=== PATIENT | male | born 1930 | race Asian ===

== ENCOUNTER 2016-09-03 11:34 | Inpatient (IN) | payer OTHER, MEDICAID ==
[~2016-09-03] VITALS: Ht 165.1 cm; Wt 59.0 kg
[2016-09-03 11:50] VITALS: BP_SYST 158
[2016-09-03 13:47] LABS: BASOPHILS # (AUTO) 0.1 K/uL (0.0-0.2); BASOPHILS % (AUTO) 0.7 % (0.0-2.0); EOSINOPHILS % (AUTO) 0.1 % (0.0-4.0); HEMATOCRIT 41.5 % (36-54); HEMOGLOBIN 13.8 g/dL (14.0-18.0); LYMPHOCYTES # (AUTO) 0.7 K/uL (1.0-5.5); LYMPHOCYTES % (AUTO) 4.3 % (20.5-51.5); MEAN CORPUSCULAR HEMOGLOBIN 28 pg (27-31); MEAN CORPUSCULAR HGB CONC 33 % (32-36); MEAN CORPUSCULAR VOLUME 85 fL (79.0-98.0); MONOCYTES # (AUTO) 0.8 K/uL (0.0-1.0); MONOCYTES % (AUTO) 5.2 % (1.7-9.3); NEUTROPHILS # (AUTO) 13.8 K/uL (1.8-7.7); NEUTROPHILS % (AUTO) 89.7 % (40.0-70.0); PLATELET COUNT (AUTO) 227 K/uL (130-430); RED BLOOD CELL COUNT(AUTO) 4.86 MIL/uL (4.2-6.2); RED CELL DISTRIBUTION WIDTH 12.8 % (9.0-15.0); WHITE BLOOD COUNT (AUTO) 15.4 K/uL (4.8-10.8)
[2016-09-03 13:49] LABS: ANION GAP 13 (5-15); CALCIUM 11.1 mg/dL (8.4-11.0); CHLORIDE 102 mmol/L (98-107); CREATININE 1.24 mg/dL (0.55-1.30); GLUCOSE 117 mg/dL (70-99); POTASSIUM 3.3 mmol/L (3.5-5.1); SODIUM SERUM 138 mmol/L (136-145); UREA NITROGEN, BLOOD 22 mg/dL (8-21)
[2016-09-03 13:54] LABS: ALANINE AMINOTRANSFERASE 50 U/L (12-78); ALBUMIN 3.6 g/dL (3.4-4.8); ASPARTATE AMINOTRANSFERASE 42 U/L (10-37); TOTAL BILIRUBIN 1.1 mg/dL (0.0-1.0); TOTAL PROTEIN, SERUM 8.2 g/dL (6.4-8.3)
[2016-09-03 14:04] LABS: BILIRUBIN,URINE NEGATIVE (NEGATIVE); BLOOD, URINE 3+ (NEGATIVE); CLARITY/URINE CLOUDY (CLEAR); COLOR,URINE YELLOW (YELLOW); GLUCOSE,URINE NEGATIVE (NEGATIVE); KETONES,URINE NEGATIVE (NEGATIVE); LEUKOCYTE ESTERASE ,URINE 3+ (NEGATIVE); NITRITE, URINE NEGATIVE (NEGATIVE); PH,URINE 6.5 (5.0-8.0); PROTEIN URINE TRACE (NEGATIVE); UROBILINOGEN,URINE 0.2 (0.2-1.0)
[2016-09-03 14:08] LABS: BACTERIA,URINE MANY /HPF (None Seen); RBC,URINE 20-50 /HPF (0-3); WBC,URINE 20-50 /HPF (0-3)
[2016-09-03] MEDS ORDERED: cefTRIAXone 1 GM IVPB PREMIX 50 ML IV ONE (14:30)
[2016-09-03] MEDS ORDERED: AZEL6DRO5 EACH EYE (15:26)
[2016-09-03] MEDS ORDERED: TAMS-11 PO (15:26)
[2016-09-03] MEDS ORDERED: SIMV20TA6 PO (15:26)
[2016-09-03] MEDS ORDERED: CALC500T51 PO (15:26)
[2016-09-03] MEDS ORDERED: triamcinolone TP (15:26)
[2016-09-03] MEDS ORDERED: ASPI81TA2 PO (15:26)
[2016-09-03] MEDS ORDERED: CYAN100060 IJ (15:26)
[2016-09-03] MEDS ORDERED: FENO145T20 PO (15:26)
[2016-09-03] MEDS ORDERED: ALEN70TA27 PO (15:26)
[2016-09-03 16:06] VITALS: BP_SYST 168
[2016-09-03] MEDS: ACETAMINOPHEN 325 MG TABLET PO PRN ×2 (16:26→20:19)
[2016-09-03 16:44] VITALS: BP_SYST 168
[2016-09-03] MEDS ORDERED: POTASSIUM CHLORIDE 20 MEQ TAB.PRT.SR PO ONE (17:30)
[2016-09-03] MEDS ORDERED: ONDANSETRON HCL 4 MG/2 ML VIAL IVP PRN (18:00)
[2016-09-03] MEDS ORDERED: GENTAMICIN 100 mg/50 mL NS 50 ML IV ONE ×2 (18:00→21:01)
[2016-09-03 19:45] VITALS: BP_SYST 122
[2016-09-03] MEDS: TAMSULOSIN HCL 0.4 MG CAP PO SCH (20:19)
[2016-09-03] MEDS ORDERED: NON-FORMULARY MEDICATION (Azelastine Hcl 1 DROP) EACH EYE SCH (21:00)
[2016-09-03] MEDS ORDERED: TAMSULOSIN HCL 0.4 MG CAP PO SCH (21:00)
[2016-09-04 00:48] VITALS: BP_SYST 130
[2016-09-04] MEDS: LR 1,000 ML IV SCH ×3 (01:32→21:19)
[2016-09-04 04:00] VITALS: BP_SYST 123
[2016-09-04 08:00] VITALS: BP_SYST 127
[2016-09-04] MEDS ORDERED: FENOFIBRATE NANOCRYSTALLIZED PO SCH (09:00)
[2016-09-04] MEDS: cefTRIAXone 1 GM IVPB PREMIX 50 ML IV SCH (09:11)
[2016-09-04] MEDS: TAMSULOSIN HCL 0.4 MG CAP PO SCH ×2 (09:12→21:19)
[2016-09-04] MEDS: ASPIRIN 81 MG TAB.CHEW PO SCH (09:12)
[2016-09-04] MEDS: SIMVASTATIN 20 MG TABLET PO SCH (09:12)
[2016-09-04] MEDS: ACETAMINOPHEN 325 MG TABLET PO PRN (11:12)
[2016-09-04 12:21] VITALS: BP_SYST 131
[2016-09-04 16:13] VITALS: BP_SYST 125
[2016-09-04 19:11] LABS: ANION GAP 5 (5-15); CALCIUM 8.9 mg/dL (8.4-11.0); CHLORIDE 110 mmol/L (98-107); CREATININE 1.18 mg/dL (0.55-1.30); GLUCOSE 165 mg/dL (70-99); POTASSIUM 3.2 mmol/L (3.5-5.1); SODIUM SERUM 140 mmol/L (136-145); UREA NITROGEN, BLOOD 19 mg/dL (8-21)
[2016-09-04] MEDS ORDERED: FINASTERIDE 5 MG TABLET (PROSCAR) PO ONE (19:15)
[2016-09-04 19:45] VITALS: BP_SYST 150
[2016-09-04] MEDS: CIPROFLOXACIN LACT 400 MG/D5W 200 ML IV SCH (21:53)
[2016-09-04] MEDS ORDERED: ZOLPIDEM TARTRATE 5 MG TABLET PO PRN (22:45)
[2016-09-05 00:43] VITALS: BP_SYST 125
[2016-09-05 04:55] VITALS: BP_SYST 150
[2016-09-05] MEDS: LR 1,000 ML IV SCH ×3 (05:48→20:37)
[2016-09-05 06:52] LABS: HEMATOCRIT 33.7 % (36-54); HEMOGLOBIN 11.4 g/dL (14.0-18.0); MEAN CORPUSCULAR HEMOGLOBIN 29 pg (27-31); MEAN CORPUSCULAR HGB CONC 34 % (32-36); MEAN CORPUSCULAR VOLUME 86 fL (79.0-98.0); PLATELET COUNT (AUTO) 207 K/uL (130-430); RED BLOOD CELL COUNT(AUTO) 3.91 MIL/uL (4.2-6.2); RED CELL DISTRIBUTION WIDTH 13.1 % (9.0-15.0)
[2016-09-05 07:15] LABS: ALANINE AMINOTRANSFERASE 31 U/L (12-78); ALBUMIN 2.1 g/dL (3.4-4.8); ANION GAP 7 (5-15); ASPARTATE AMINOTRANSFERASE 30 U/L (10-37); CALCIUM 8.3 mg/dL (8.4-11.0); CHLORIDE 111 mmol/L (98-107); CREATININE 1.04 mg/dL (0.55-1.30); GLUCOSE 97 mg/dL (70-99); SODIUM SERUM 142 mmol/L (136-145); TOTAL BILIRUBIN 0.4 mg/dL (0.0-1.0); TOTAL PROTEIN, SERUM 5.8 g/dL (6.4-8.3); UREA NITROGEN, BLOOD 17 mg/dL (8-21)
[2016-09-05 07:19] LABS: WHITE BLOOD COUNT (AUTO) 9.6 K/uL (4.8-10.8)
[2016-09-05 08:00] VITALS: BP_SYST 150
[2016-09-05] MEDS: ASPIRIN 81 MG TAB.CHEW PO SCH (08:47)
[2016-09-05] MEDS: cefTRIAXone 1 GM IVPB PREMIX 50 ML IV SCH (08:47)
[2016-09-05] MEDS: TAMSULOSIN HCL 0.4 MG CAP PO SCH ×2 (08:48→20:35)
[2016-09-05] MEDS: FENOFIBRATE NANOCRYSTALLIZED 48 MG TABLET (TRICOR) PO SCH (08:48)
[2016-09-05] MEDS: SIMVASTATIN 20 MG TABLET PO SCH (08:48)
[2016-09-05] MEDS: ACETAMINOPHEN 325 MG TABLET PO PRN ×2 (08:48→20:36)
[2016-09-05] MEDS: FINASTERIDE 5 MG TABLET (PROSCAR) PO SCH (08:57)
[2016-09-05] MEDS: CIPROFLOXACIN LACT 400 MG/D5W 200 ML IV SCH ×2 (08:58→21:58)
[2016-09-05] MEDS: AZELASTINE 0.05% OP SCH ×2 (09:00→20:36)
[2016-09-05 09:34] LABS: ATYPICAL LYMPHOCYTES % 0 % (0-0); BAND % (MANUAL) 2 % (0-6); BASOPHILS % (MANUAL) 0 % (0-2); EOSINOPHILS % (MANUAL) 0 % (0-7); LYMPHOCYTES % (MANUAL) 8 % (20-46); MONOCYTES % (MANUAL) 10 % (0-11)
[2016-09-05 12:00] VITALS: BP_SYST 136
[2016-09-05 16:00] VITALS: BP_SYST 130
[2016-09-05] MEDS ORDERED: POTASSIUM CHLORIDE 20 MEQ TAB.PRT.SR PO ONE (17:30)
[2016-09-05] MEDS ORDERED: MAGNESIUM CITRATE 300 ML ORAL SOLUTION PO ONE (17:45)
[2016-09-05 19:50] VITALS: BP_SYST 153
[2016-09-05] MEDS: POTASSIUM CHLORIDE 20 MEQ TAB.PRT.SR PO SCH (20:34)
[2016-09-06] MEDS ORDERED: traMADol HCL HCL 50 MG TABLET (ULTRAM) PO PRN (00:30)
[2016-09-06 00:55] VITALS: BP_SYST 123
[2016-09-06] MEDS: LR 1,000 ML IV SCH ×3 (04:15→20:58)
[2016-09-06 04:52] VITALS: BP_SYST 153
[2016-09-06 08:00] VITALS: BP_SYST 143
[2016-09-06] MEDS: ASPIRIN 81 MG TAB.CHEW PO SCH (08:19)
[2016-09-06] MEDS: TAMSULOSIN HCL 0.4 MG CAP PO SCH ×2 (08:19→20:59)
[2016-09-06] MEDS: SIMVASTATIN 20 MG TABLET PO SCH (08:19)
[2016-09-06] MEDS: POTASSIUM CHLORIDE 20 MEQ TAB.PRT.SR PO SCH ×2 (08:19→20:59)
[2016-09-06] MEDS: FINASTERIDE 5 MG TABLET (PROSCAR) PO SCH (08:19)
[2016-09-06] MEDS: FENOFIBRATE NANOCRYSTALLIZED 48 MG TABLET (TRICOR) PO SCH (08:19)
[2016-09-06] MEDS: cefTRIAXone 1 GM IVPB PREMIX 50 ML IV SCH ×2 (08:20→21:04)
[2016-09-06] MEDS: AZELASTINE 0.05% OP SCH ×2 (09:00→21:00)
[2016-09-06] MEDS: CIPROFLOXACIN LACT 400 MG/D5W 200 ML IV SCH (09:24)
[2016-09-06 12:39] VITALS: BP_SYST 139
[2016-09-06 16:15] VITALS: BP_SYST 140
[2016-09-06 18:03] LABS: ANION GAP 3 (5-15); CALCIUM 8.7 mg/dL (8.4-11.0); CHLORIDE 109 mmol/L (98-107); CREATININE 0.98 mg/dL (0.55-1.30); GLUCOSE 115 mg/dL (70-99); POTASSIUM 4.4 mmol/L (3.5-5.1); SODIUM SERUM 139 mmol/L (136-145); UREA NITROGEN, BLOOD 14 mg/dL (8-21)
[2016-09-06 20:15] VITALS: BP_SYST 157
[2016-09-06] MEDS: ACETAMINOPHEN 325 MG TABLET PO PRN (21:27)
[2016-09-07 01:18] VITALS: BP_SYST 145
[2016-09-07 06:50] LABS: EOSINOPHILS # (AUTO) 0.5 K/uL (0.0-0.4); EOSINOPHILS % (AUTO) 5.4 % (0.0-4.0); HEMOGLOBIN 12.1 g/dL (14.0-18.0); LYMPHOCYTES # (AUTO) 0.9 K/uL (1.0-5.5); LYMPHOCYTES % (AUTO) 9.3 % (20.5-51.5); MEAN CORPUSCULAR HEMOGLOBIN 28 pg (27-31); MEAN CORPUSCULAR HGB CONC 34 % (32-36); MEAN CORPUSCULAR VOLUME 84 fL (79.0-98.0); MONOCYTES % (AUTO) 10.7 % (1.7-9.3); NEUTROPHILS # (AUTO) 6.9 K/uL (1.8-7.7); NEUTROPHILS % (AUTO) 74.6 % (40.0-70.0); PLATELET COUNT (AUTO) 285 K/uL (130-430); RED BLOOD CELL COUNT(AUTO) 4.29 MIL/uL (4.2-6.2); WHITE BLOOD COUNT (AUTO) 9.3 K/uL (4.8-10.8)
[2016-09-07 07:13] LABS: ANION GAP 5 (5-15); CALCIUM 8.7 mg/dL (8.4-11.0); CHLORIDE 111 mmol/L (98-107); CREATININE 0.97 mg/dL (0.55-1.30); GLUCOSE 104 mg/dL (70-99); SODIUM SERUM 140 mmol/L (136-145); UREA NITROGEN, BLOOD 14 mg/dL (8-21)
[2016-09-07] MEDS: AZELASTINE 0.05% OP SCH ×2 (09:00→20:14)
[2016-09-07] MEDS: cefTRIAXone 1 GM IVPB PREMIX 50 ML IV SCH ×2 (09:53→20:14)
[2016-09-07] MEDS: ASPIRIN 81 MG TAB.CHEW PO SCH (10:01)
[2016-09-07] MEDS: SIMVASTATIN 20 MG TABLET PO SCH (10:01)
[2016-09-07] MEDS: POTASSIUM CHLORIDE 20 MEQ TAB.PRT.SR PO SCH ×2 (10:01→20:14)
[2016-09-07] MEDS: FENOFIBRATE NANOCRYSTALLIZED 48 MG TABLET (TRICOR) PO SCH (10:01)
[2016-09-07] MEDS: FINASTERIDE 5 MG TABLET (PROSCAR) PO SCH (10:01)
[2016-09-07] MEDS: TAMSULOSIN HCL 0.4 MG CAP PO SCH ×2 (10:01→20:14)
[2016-09-07] MEDS: GENTAMICIN 120 MG/ ISO-OSM 100 ML PREMIX IV SCH (12:21)
[2016-09-07 13:02] VITALS: BP_SYST 145
[2016-09-07] MEDS: LR 1,000 ML IV SCH (13:02)
[2016-09-07 16:10] VITALS: BP_SYST 142
[2016-09-07 20:00] VITALS: BP_SYST 143
[2016-09-07 22:52] LABS: BILIRUBIN,URINE NEGATIVE (NEGATIVE); BLOOD, URINE 3+ (NEGATIVE); CLARITY/URINE SL HAZY (CLEAR); COLOR,URINE YELLOW (YELLOW); GLUCOSE,URINE NEGATIVE (NEGATIVE); KETONES,URINE NEGATIVE (NEGATIVE); LEUKOCYTE ESTERASE ,URINE NEGATIVE (NEGATIVE); NITRITE, URINE NEGATIVE (NEGATIVE); PH,URINE 7.5 (5.0-8.0); PROTEIN URINE NEGATIVE (NEGATIVE); UROBILINOGEN,URINE 0.2 (0.2-1.0)
[2016-09-07 22:59] LABS: BACTERIA,URINE FEW /HPF (None Seen); RBC,URINE 20-50 /HPF (0-3)
[2016-09-07 23:00] LABS: MUCUS,URINE None Seen /LPF (None Seen)
[2016-09-08 00:32] VITALS: BP_SYST 20
[2016-09-08] MEDS: LR 1,000 ML IV SCH (02:15)
[2016-09-08 04:39] VITALS: BP_SYST 143
[2016-09-08 06:35] LABS: BASOPHILS % (AUTO) 0.2 % (0.0-2.0); EOSINOPHILS # (AUTO) 0.6 K/uL (0.0-0.4); EOSINOPHILS % (AUTO) 6.2 % (0.0-4.0); HEMATOCRIT 36.3 % (36-54); HEMOGLOBIN 12.4 g/dL (14.0-18.0); LYMPHOCYTES # (AUTO) 1.3 K/uL (1.0-5.5); LYMPHOCYTES % (AUTO) 13.3 % (20.5-51.5); MEAN CORPUSCULAR HEMOGLOBIN 29 pg (27-31); MEAN CORPUSCULAR HGB CONC 34 % (32-36); MEAN CORPUSCULAR VOLUME 84 fL (79.0-98.0); MONOCYTES # (AUTO) 0.8 K/uL (0.0-1.0); MONOCYTES % (AUTO) 7.9 % (1.7-9.3); NEUTROPHILS # (AUTO) 7.3 K/uL (1.8-7.7); NEUTROPHILS % (AUTO) 72.4 % (40.0-70.0); PLATELET COUNT (AUTO) 332 K/uL (130-430); RED BLOOD CELL COUNT(AUTO) 4.31 MIL/uL (4.2-6.2); RED CELL DISTRIBUTION WIDTH 13.1 % (9.0-15.0)
[2016-09-08 06:52] LABS: ANION GAP 6 (5-15); CALCIUM 8.9 mg/dL (8.4-11.0); CHLORIDE 108 mmol/L (98-107); CREATININE 1.01 mg/dL (0.55-1.30); GLUCOSE 104 mg/dL (70-99); SODIUM SERUM 138 mmol/L (136-145); UREA NITROGEN, BLOOD 16 mg/dL (8-21)
[2016-09-08 08:00] VITALS: BP_SYST 136
[2016-09-08] MEDS: AZELASTINE 0.05% OP SCH (09:00)
[2016-09-08] MEDS: cefTRIAXone 1 GM IVPB PREMIX 50 ML IV SCH (09:07)
[2016-09-08] MEDS: SIMVASTATIN 20 MG TABLET PO SCH (09:08)
[2016-09-08] MEDS: POTASSIUM CHLORIDE 20 MEQ TAB.PRT.SR PO SCH (09:08)
[2016-09-08] MEDS: FENOFIBRATE NANOCRYSTALLIZED 48 MG TABLET (TRICOR) PO SCH (09:08)
[2016-09-08] MEDS: TAMSULOSIN HCL 0.4 MG CAP PO SCH (09:09)
[2016-09-08] MEDS: FINASTERIDE 5 MG TABLET (PROSCAR) PO SCH (09:09)
[2016-09-08] MEDS: ASPIRIN 81 MG TAB.CHEW PO SCH (09:09)
[2016-09-08] MEDS: GENTAMICIN 120 MG/ ISO-OSM 100 ML PREMIX IV SCH (12:16)
[2016-09-08 13:00] VITALS: BP_SYST 139
[2016-09-08 14:55] VITALS: BP_SYST 139
[2016-09-08 17:05] VITALS: BP_SYST 139
== END 2016-09-08 15:55 | disposition home health service (06) | DRG 871 ==
LOC: SED 11:34 → SMU 15:07
PROVIDERS: ADMIT Internal Medicine; ATTEND Internal Medicine
DX: A41.51 Sepsis due to Escherichia coli [E. coli] (principal); E43 Unspecified severe protein-calorie malnutrition; N12 Tubulo-interstitial nephritis, not specified as acute or chronic; E87.6 Hypokalemia; E83.52 Hypercalcemia; N40.0 Benign prostatic hyperplasia without lower urinary tract symptoms; I10 Essential (primary) hypertension; E78.5 Hyperlipidemia, unspecified; D64.9 Anemia, unspecified; K59.00 Constipation, unspecified; M81.0 Age-related osteoporosis without current pathological fracture; N28.1 Cyst of kidney, acquired; N40.1 Benign prostatic hyperplasia with lower urinary tract symptoms; R33.8 Other retention of urine; Z88.0 Allergy status to penicillin; Z79.899 Other long term (current) drug therapy; Z68.24 Body mass index [BMI] 24.0-24.9, adult
CPT/HCPCS: 36415; 76770; 80048; 80053; 81000-TC; 83036; 83605; 83735-TC; 85007; 85025; 85027; 87040-TC; 87086; 87186-TC; 96365; 97116-GP; 99285; J0696; J0744; J1580; J7030; J7120

== ENCOUNTER 2019-04-24 17:09 | Emergency (ER) | payer OTHER, MEDICAID ==
[~2019-04-24] VITALS: Ht 160 cm; Wt 60.3 kg
[~2019-04-24 17:09] MED LIST: ALEN70TA27 PO; ASPI-1155 PO; AZEL6DRO5 EACH EYE; CYAN100060 IJ; FENO145T37 PO; SIMV20TA6 PO; TAMS-11 PO; triamcinolone TP
[2019-04-24 17:15] VITALS: BP_SYST 172
--- NOTE | 2019-04-24 17:37 | NUR ---
Patient to ER bed 04 to gown for evaluation. Side rails up.
--- NOTE | 2019-04-24 17:40 | NUR ---
Patient presented to ER C/O Dizziness. Patient ambulatory to ER, afebrile, skin pink and warm, pulses present, denies N/V/D, denies pain. Patient speaks canadian only, pt BIB family to translate Family of patient states PT has has intermittent "dizziness for a few weeks". Family of patient took to , referred to ER.
--- NOTE | 2019-04-24 17:40 | NUR ---
ER Dr. MOTA at bedside examining patient.
[2019-04-24] MEDS ORDERED: ENALAPRILAT DIHYDRATE 1.25 MG/ML VIAL IVP ONE (17:45)
[2019-04-24 18:04] LABS: BASOPHILS % (AUTO) 0.5 % (0.0-2.0); EOSINOPHILS # (AUTO) 0.3 K/uL (0.0-0.4); EOSINOPHILS % (AUTO) 5.2 % (0.0-4.0); HEMATOCRIT 41.6 % (36-54); HEMOGLOBIN 13.8 g/dL (14.0-18.0); LYMPHOCYTES # (AUTO) 1.5 K/uL (1.0-5.5); LYMPHOCYTES % (AUTO) 23.6 % (20.5-51.5); MEAN CORPUSCULAR HEMOGLOBIN 29 pg (27-31); MEAN CORPUSCULAR HGB CONC 33 % (32-36); MEAN CORPUSCULAR VOLUME 88 fL (79.0-98.0); MONOCYTES # (AUTO) 0.6 K/uL (0.0-1.0); MONOCYTES % (AUTO) 9.5 % (1.7-9.3); NEUTROPHILS # (AUTO) 3.9 K/uL (1.8-7.7); NEUTROPHILS % (AUTO) 61.2 % (40.0-70.0); PLATELET COUNT (AUTO) 272 K/uL (130-430); RED CELL DISTRIBUTION WIDTH 14.1 % (9.0-15.0); WHITE BLOOD COUNT (AUTO) 6.3 K/uL (4.8-10.8)
--- NOTE | 2019-04-24 18:15 | NUR ---
# 20 gauge angiocath placed to LEFT ARM. Use of asceptic technique. Opsite placed over site. Blood return noted. Blood for lab drawn from site. Flushed with 10 cc of normal saline. No evidence of infiltration noted. Patient tolerated well.
--- NOTE | 2019-04-24 18:28 | NUR ---
PT TO CT WITH RADIOLOGY STAFF VIA RUSSELL
[2019-04-24 18:33] LABS: ANION GAP 7 (5-15); CALCIUM 9.7 mg/dL (8.4-11.0); CHLORIDE 108 mmol/L (98-107); CREATININE 1.14 mg/dL (0.55-1.30); GLUCOSE 92 mg/dL (70-99); POTASSIUM 4.6 mmol/L (3.5-5.1); SODIUM SERUM 142 mmol/L (136-145); UREA NITROGEN, BLOOD 33 mg/dL (8-21)
[2019-04-24 18:38] LABS: ALANINE AMINOTRANSFERASE 25 U/L (12-78); ALBUMIN 3.6 g/dL (3.4-4.8); ASPARTATE AMINOTRANSFERASE 24 U/L (10-37); TOTAL BILIRUBIN 0.3 mg/dL (0.0-1.0)
--- NOTE | 2019-04-24 19:10 | NUR ---
Rian hamilton in [facility] - 04/24/19 at 1929 by [email or web address] REPORT TO GEOFFREY KENNEY & BARBY KENNEY
--- NOTE | 2019-04-24 19:10 | NUR ---
REPORT TO GEOFFREY KENNEY & BARBY KENNEY
--- NOTE | 2019-04-24 20:08 | NUR ---
RECEIVED ALERT,ORIENTED. NOTIN ACUTE DISTRESS. VERBALIZED RELIEF OF DIZZINESS. YW=803/64. ER-MD AT BEDSIDE TO RE-EVALUATE AND DISCUSS PLAN OF CARE WITH FAMILY.
[2019-04-24] MEDS ORDERED: hydrALAZINE HCL 20 MG/ML VIAL IVP ONE (20:15)
--- NOTE | 2019-04-24 20:16 | NUR ---
HYDRALAZINE 10 MG IVP GIVEN. WILL CLOSELY MONITOR BP.
--- NOTE | 2019-04-24 20:30 | NUR ---
BP BETTER 141/66.
--- NOTE | 2019-04-24 21:10 | NUR ---
DISCHARGED BY STABLE AND IMPROVED. PRESCRIPTION,VERBAL AND WRITTEN AFTERCARE INSTRUCTIONS GIVEN TO PT.AND FAMILY. VERBALIZED UNDERSTANDING. LEFT AMBULATORY WITH STABLE GAIT.
[2019-04-24 21:21] VITALS: BP_SYST 143
== END 2019-04-24 21:10 | disposition home or self-care (01) ==
LOC: SED 17:09
DX: R42 Dizziness and giddiness (principal); I10 Essential (primary) hypertension; N40.0 Benign prostatic hyperplasia without lower urinary tract symptoms; Z88.0 Allergy status to penicillin; Z79.82 Long term (current) use of aspirin; Z79.899 Other long term (current) drug therapy
CPT/HCPCS: 36415; 70450; 71045; 80053; 83880; 84484; 85025; 85379; 93005; 96374; 96375; 99284; J0360